=== PATIENT | female | born 1980 | race African-American/Black ===

== ENCOUNTER 2020-04-05 23:53 | Emergency (ER) | payer OTHER ==
[~2020-04-05] VITALS: Ht 175.3 cm; Wt 94.3 kg
[~2020-04-05 23:53] MED LIST: IBUPROFEN 600600 M1 PO; NORCO 5-325 TA1 EACH PO; ZPAK PO
[2020-04-06 01:14] LABS: ABSOLUTE NEUTROPHILS 4.4 thou/uL (1.4-8.2); BASOPHILS 0.9 % (0.0-2.0); EOSINOPHILS 2.6 % (0.0-3.0); HEMATOCRIT 39.3 % (37.0-47.0); HEMOGLOBIN 12.7 gm/dL (12.0-15.0); LYMPHOCYTES 33.1 % (24.0-44.0); MCH 27.6 pg (26.0-34.0); MCHC 32.5 g/dL (28.0-37.0); MCV 84.9 fL (80.0-100.0); MONOCYTES 10.7 % (1.0-8.0); PLATELET COUNT 279 thou/uL (150-400); POLYS 52.7 % (36.0-66.0); RBC 4.62 mil/uL (4.20-5.00); RDW 14.7 % (10.5-14.5); WBC 8.4 thou/uL (4.0-11.0)
[2020-04-06 01:25] LABS: ANION GAP 12 mmol/L (7-16); BUN 14 mg/dL (7-18); CHLORIDE 104 mmol/L (98-107); CO2 23 mmol/L (21-32); CREATININE 1.1 mg/dL (0.6-1.0); GLUCOSE 89 mg/dL (74-106); POTASSIUM 4.1 mmol/L (3.5-5.1); SODIUM 139 mmol/L (136-145)
[2020-04-06 01:35] LABS: ALBUMIN 3.6 g/dL (3.4-5.0); LIPASE 56 U/L (73-393); SGOT 15 U/L (15-37); SGPT 21 U/L (30-65); TOTAL BILIRUBIN 0.4 mg/dL (0.2-1.0); TOTAL PROTEIN 7.6 g/dL (6.4-8.2); TROPONIN-I <0.06 ng/mL (<0.06)
[2020-04-06] MEDS ORDERED: IBUPROFEN 600600 M1 PO (04:24)
[2020-04-06 04:54] VITALS: BP 124/80
--- NOTE | 2020-04-06 07:17 | EKG ---
[address] [address] ELECTROCARDIOGRAM REPORT Name: BOOGIE WHEELER Room #: [facility]#: [id number] Admission: 04/05/20 Attend Phys: Discharge: 04/06/20 Date of : 82 Report #: [id number] [facility] ED Test Date: 2020-04-06 Test Time: 00:37:20 Pat Name: BOOGIE WHEELER Department: Room: Gender: F [employer]: leroy : 1980 Requested By: Hari Peralta Order Number: [id number] MD: Chauncey Spencer Measurements Intervals [place] Rate: 88 P: 44 [place]: 169 QRS: 27 QRSD: 78 T: 19 QT: 332 QTc: 402 Interpretive Statements Sinus rhythm Probable left atrial enlargement Baseline wander in lead(s) I,II,aVR No previous ECG available for comparison Electronically Signed On 04-06-2020 7:16:49 [employer] by Chauncey Spencer [email or web address] <ELECTRONICALLY SIGNED> By: Chauncey Spnecer MD, [facility] 04/06/20 0716 0037 0037 Chauncey Spencer MD, FACC /EPI
== END 2020-04-06 04:54 | disposition home or self-care (01) ==
LOC: ER 23:53
PROVIDERS: Emergency Medicine
DX: R07.89 Other chest pain (principal); E04.1 Nontoxic single thyroid nodule; I10 Essential (primary) hypertension; J45.909 Unspecified asthma, uncomplicated

== ENCOUNTER 2020-06-19 21:01 | Emergency (ER) | payer OTHER ==
[~2020-06-19] VITALS: Ht 175.3 cm; Wt 93.0 kg
[2020-06-19 21:14] LABS: URINE BILIRUBIN NEGATIVE (Negative); URINE BLOOD 3+ (Negative); URINE CLARITY CLOUDY; URINE COLOR YELLOW; URINE GLUCOSE-RANDOM* NEGATIVE (Negative); URINE KETONES NEGATIVE (Negative); URINE NITRITE-REFLEX NEGATIVE (Negative); URINE PROTEIN (DIPSTICK) 1+ (Negative); URINE UROBILINOGEN 0.2 E.U./dl (0.2-1.0)
[2020-06-19 21:15] LABS: URINE LEUKOCYTES-REFLEX 3+ (Negative)
[2020-06-19 21:20] LABS: CASTS None Seen /LPF (None Seen); SQUAMOUS 4-10 Moderate /LPF (0-3); URINE RBC 3-10 Few /HPF (0-2); URINE WBC-REFLEX >25 Many /HPF (0-5)
[2020-06-19 21:21] LABS: BACTERIA-REFLEX 1-9 Few /HPF (None Seen); CRYSTALS None Seen /LPF (None Seen)
[2020-06-19] MEDS ORDERED: PYRIDIUM200 MG PO (21:55)
[2020-06-19] MEDS ORDERED: MACROBID 100 M100 M1 PO ×2 (21:55→21:57)
[2020-06-19 22:03] VITALS: BP 141/96
== END 2020-06-19 22:28 | disposition home or self-care (01) ==
LOC: ER 21:01
PROVIDERS: Emergency Medicine
DX: N39.0 Urinary tract infection, site not specified (principal); I10 Essential (primary) hypertension; J45.909 Unspecified asthma, uncomplicated; Z88.2 Allergy status to sulfonamides